=== PATIENT | female | born 1930 | race Caucasian/White ===

== ENCOUNTER 2017-05-15 12:56 | Emergency (ER) | payer MEDICARE, BC ==
[~2017-05-15] VITALS: Ht 165.1 cm; Wt 72.6 kg
--- NOTE | 2017-05-15 13:54 | Diagnostic Imaging Report ---
PROCEDURE: CHEST SINGLE (PORTABLE) COMPARISON: None. INDICATIONS: FALL FINDINGS: The lungs are well-inflated. Right hemidiaphragmatic elevation. No focal airspace consolidation, pleural effusion, or pneumothorax. Mild prominence of the pulmonary interstitium likely reflects age-related fibrotic changes. Tortuosity and atherosclerotic calcification of the thoracic aorta. Normal heart size. No acute osseous abnormality. CONCLUSION: No acute cardiopulmonary abnormality. Dictated by: Henry Suresh M.D. on 05/15/2017 at 13:53 Electronically approved by: Henry Suresh M.D. on 05/15/2017 at 13:53
--- NOTE | 2017-05-15 14:23 | Diagnostic Imaging Report ---
EXAMINATION: Head and cervical spine CT without contrast. HISTORY: Status post fall, right frontal trauma, pain COMPARISON: None available TECHNIQUE: Multidetector axial images were obtained without contrast from the foramen magnum to the vertex and through the cervical spine. The images were reconstructed using brain and bone algorithms. Thin section brain images were reformatted into coronal and sagittal planes. HEAD CT FINDINGS: Skull: No lytic or blastic lesions. Right frontal scalp/soft tissue swelling/hematoma without underlying fractures. Parenchyma: Multiple confluent periventricular high matter hypodensities, most likely nonspecific chronic macrovascular ischemic changes. No mass, hemorrhage or CT evidence of acute vascular insult. Brain volume: Moderate generalized brain volume loss. Ventricles: No hydrocephalus or displacement. Arteries: No density suggestive of thrombus. Dural sinuses: No abnormal density. Extra-axial spaces: Small approximately 5 mm maximum thickness right inferior frontal convexity acute/hyperdense subdural hematoma without associated mass effect or midline shift. Foramen magnum: No mass, Chiari malformation, or basilar invagination. Sella: No obvious mass. Paranasal/mastoid sinuses: Partial opacification of the partially visualized right maxillary sinus, otherwise clear CERVICAL SPINE CT FINDINGS: Alignment:Normal alignment and lordosis. Soft tissues: Normal. Vertebrae: Normal height and density. No acute fracture, infection or neoplasm. Degenerative changes: C1-C2: Degenerative changes without stenoses. C2-C3: Mild disc bulge, bilateral facet arthrosis. No significant stenoses. C3-C4: Disc osteophyte complex formation, bilateral uncovertebral and facet arthrosis. Mild to moderate bilateral foraminal stenoses. C4-C5: Disc osteophyte complex formation, uncovertebral and facet arthrosis. No significant stenosis. Age-indeterminate likely chronic and degenerative grade 1 anterolisthesis.. C5-C6: Disc osteophyte complex formation, bilateral uncovertebral facet arthrosis. Mild right and moderate left foraminal stenosis.. C6-C7: Disc osteophyte complex formation, bilateral uncovertebral and facet arthrosis. Moderately severe left foraminal stenosis.. C7-T1: Prominent facet arthrosis. Mild age-indeterminate likely chronic and degenerative anterolisthesis.. IMPRESSION: Head CT: 1. Right frontal scalp hematoma without underlying fractures. 2. Small right inferior frontal acute subdural hematoma without associated mass effect or midline shift. 3. Mild chronic microvascular disease changes. Cervical spine CT: 1. No acute fractures or dislocations. 2. Chronic degenerative changes as described. Note: Acute post traumatic spinal cord, vascular or ligamentous injury cannot adequately be assessed with CT. The findings were discussed with the ER TRAINING ASSISTANT in charge of the patient Rodrigue on 05/15/2017 at 2:[address]: Dr. Vani De La Cruz M.D. on 05/15/2017 2:19 PM
[2017-05-15 14:42] LABS: BASOPHILS # (AUTO) 0.1 (0.0-0.1); BASOPHILS % 0.6 % (0.0-1.0); EOSINOPHILS # (AUTO) 0.2 (0.0-0.4); EOSINOPHILS % 1.9 % (0.0-6.0); HEMATOCRIT 39.5 % (34.2-44.1); HEMOGLOBIN 13.5 g/dL (12.0-16.0); LYMPHOCYTES # (AUTO) 3.2 (1.0-3.2); LYMPHOCYTES % 29.6 % (18.0-39.1); MEAN CORPUSCULAR HEMOGLOBIN 31.8 pg (28-32); MEAN CORPUSCULAR HGB CONC 34.2 g/dL (31-35); MEAN CORPUSCULAR VOLUME 92.9 fL (81-99); MONOCYTES # (AUTO) 1.1 (0.2-0.8); NEUTROPHILS # (AUTO) 6.2 (2.1-6.9); NEUTROPHILS % 57.6 % (38.7-80.0); PLATELET COUNT 195 x10e3/uL (140-360); RED BLOOD COUNT 4.25 x10e6/uL (3.6-5.1); RED CELL DISTRIBUTION WIDTH 12.7 % (11.7-14.4)
[2017-05-15 15:05] LABS: ALBUMIN 3.5 g/dL (3.5-5.0); ALBUMIN/GLOBULIN RATIO 1.1 (0.8-2.0); ANION GAP 13.1 mmol/L (8-16); CALCIUM 8.1 mg/dL (8.4-10.2); CREATININE, SERUM 0.91 mg/dL (0.57-1.11); POTASSIUM 4.1 mmol/L (3.5-5.1)
[2017-05-15 15:17] LABS: CREATINE KINASE MB 2.6 ng/mL (0.00-5.00)
== END 2017-05-15 16:46 | disposition short-term general hospital (02) ==
LOC: ER 12:56
DX: S06.5X0A Traumatic subdural hemorrhage without loss of consciousness, initial encounter (principal); W06.XXXA Fall from bed, initial encounter; Y93.84 Activity, sleeping; Y92.128 Other place in nursing home as the place of occurrence of the external cause; F03.90 Unspecified dementia, unspecified severity, without behavioral disturbance, psychotic disturbance, mood disturbance, and anxiety; I10 Essential (primary) hypertension; I25.10 Atherosclerotic heart disease of native coronary artery without angina pectoris; E03.9 Hypothyroidism, unspecified; K21.9 Gastro-esophageal reflux disease without esophagitis; F32.9 Major depressive disorder, single episode, unspecified
CPT/HCPCS: 36415; 70450; 71045; 72125; 80053; 82550; 82553; 84484; 85025; 93005; 99284